=== PATIENT | female | born 1970 | race Asian ===

== ENCOUNTER 2018-06-22 15:32 | Outpatient (CLI) | payer OTHER | END 2018-06-22 20:41 | disposition home or self-care (01) | LOC: MAMMO 15:32 | DX: Z12.31 Encounter for screening mammogram for malignant neoplasm of breast (principal) ==

== ENCOUNTER 2018-10-29 11:31 | Outpatient (CLI) | payer OTHER ==
[2018-10-29 12:00] LABS: PLATELET COUNT 290 K/uL (152-353)
[2018-10-29 12:36] LABS: POTASSIUM 3.8 mmol/L (3.6-5.2)
== END 2018-10-29 23:01 | disposition home or self-care (01) ==
LOC: LABW 11:31
PROVIDERS: Internal Medicine
DX: I10 Essential (primary) hypertension (principal); E78.5 Hyperlipidemia, unspecified; E03.9 Hypothyroidism, unspecified; E11.9 Type 2 diabetes mellitus without complications; E53.9 Vitamin B deficiency, unspecified; E55.9 Vitamin D deficiency, unspecified; Z13.21 Encounter for screening for nutritional disorder; R53.83 Other fatigue; Z13.0 Encounter for screening for diseases of the blood and blood-forming organs and certain disorders involving the immune mechanism; L40.9 Psoriasis, unspecified; Z51.81 Encounter for therapeutic drug level monitoring
CPT/HCPCS: 36415; 80053; 80061; 80074; 81000; 82306; 82607; 82626; 82728; 82746; 83036; 83735; 84436; 84443; 85027; 86480

== ENCOUNTER 2019-08-22 08:17 | Outpatient (CLI) | payer BC | END 2019-08-22 22:36 | disposition home or self-care (01) | LOC: NM 08:17 | DX: R06.02 Shortness of breath (principal); R94.31 Abnormal electrocardiogram [ECG] [EKG]; Z12.31 Encounter for screening mammogram for malignant neoplasm of breast | CPT/HCPCS: A9500 ==

== ENCOUNTER 2020-09-11 11:03 | Outpatient (CLI) | payer BC | END 2020-09-11 19:36 | disposition home or self-care (01) | LOC: MAMMO 11:03 | PROVIDERS: ATTEND Obstetrics & Gynecology | DX: Z12.31 Encounter for screening mammogram for malignant neoplasm of breast (principal) ==

== ENCOUNTER 2021-11-18 14:16 | Outpatient (CLI) | payer BC | END 2021-11-18 22:10 | disposition home or self-care (01) | LOC: MAMMO 14:16 | PROVIDERS: ATTEND Obstetrics & Gynecology | DX: Z12.31 Encounter for screening mammogram for malignant neoplasm of breast (principal) ==

== ENCOUNTER 2023-01-16 09:04 | Outpatient (CLI) | payer BC | END 2023-01-16 19:20 | disposition home or self-care (01) | LOC: MAMMO 09:04 | PROVIDERS: ATTEND Obstetrics & Gynecology | DX: Z12.31 Encounter for screening mammogram for malignant neoplasm of breast (principal) ==